=== PATIENT | female | born 1985 | race Caucasian/White ===

== ENCOUNTER 2021-04-28 23:06 | Emergency (ER) | payer OTHER, SELFPAY ==
--- NOTE | ~2021-04-28 | US_ITS ---
EXAMINATION: US OB <=14 wk fetus w TV DATE: 04/29/2021 02:19 INDICATION: Right-sided pelvic pain. Evaluate for ectopic . TECHNIQUE: Real-time transabdominal and transvaginal obstetric ultrasound. FINDINGS: No prior studies for comparison. The uterus measures 9.4 x 5.7 x 5.2 cm. A single intrauterine gestational sac measuring 1 cm is ident ified, consistent with 5 week 4 day gestation. Yolk sac is present. No pole or heart motions de tected. There is a subchorionic hemorrhage measuring 2.3 x 1.5 x 1.3 cm. Right ovary contains follicu lar changes. Normal Doppler signal in both ovaries. No free fluid. IMPRESSION: 1. Intrauterine gestational sac corresponding to 5 week 4 day day gestation (PARTH 12/26/2021). No pole or heart motions detected, most likely due to early gestational age. 2: Subchorionic hemorrhage measuring 2.3 x 1.5 x 1.3 cm. Reviewed, dictated and finalized at location A. IMPRESSION: 1. Intrauterine gestational sac corresponding to 5 week 4 day day gestation (ED D 12/26/2021). No pole or heart motions detected, most likely due to early gestational age. 2: Subchorionic hemorrhage measuring 2.3 x 1.5 x 1.3 cm.
[2021-04-28 23:09] VITALS: BP 121/102; PULSE 76; RESP 17; TEMP 36.8; O2SAT 99
[2021-04-28 23:28] LABS: Basophils Percent Auto 0.3 % (0.2-1.2); Eosinophils Absolute Auto 0.2 K/mm3 (0-0.3); Eosinophils Percent Auto 1.3 % (0-4.4); Hematocrit 41.7 % (37.0-47.0); Hemoglobin 13.8 g/dL (12.0-15.0); Immature Granulocyte Absolute 0.06 K/mm3 (0.00-0.031); Immature Granulocyte Percent A 0.5 % (0-0.5); Lymphocytes Absolute Auto 2.98 K/mm3 (0.9-3.2); Mean Corpuscular HGB Conc 33.1 g/dl (32-36); Mean Corpuscular Hemoglobin 29.4 pg (26-34); Mean Corpuscular Volume 88.7 fl (80-100); Mean Platelet Volume 10.6 fl (7.4-10.4); Monocytes Absolute Auto 0.9 K/mm3 (0.1-0.6); Monocytes Percent Auto 7.9 % (2.6-8.5); Neutrophils Absolute Auto 7.3 K/mm3 (1.3-6.7); Platelet Count Result 250 k/mm3 (150-375); White Blood Count 11.5 K/mm3 (4.5-10.0)
--- NOTE | 2021-04-28 23:57 | ED.GENADULT ---
HPI - General Adult General Chief complaint: Nausea/Vomiting/Diarrhea Stated complaint: Kidney pain, nausea Time Seen by Provider: 04/28/21 23:35 History of Present Illness HPI narrative: Patient a 35-year-old female presents the emergency department with chief complaint of right flank pain. Reports that she is early on in and had sudden onset pain in her right flank. Patient states that sharp reports not improved by anything nor is worsened by anything. Patient reports that she has not had an ultrasound this denies vaginal bleeding denies vaginal discharge denies burning with urination. Patient reports a no prior history of kidney stones did have an episode before in the past where she had severe flank pain that resolved spontaneously. Related Data Allergies Allergy/AdvReac Type Severity Reaction Status Date / Time No Known Allergies Allergy Unknown Verified 04/29/21 02:40 Review of Systems Review of Systems: Narrative: A 10 system review of systems was completed on the patient and is negative except for what is stated in the HPI. Nursing and ancillary documentation was reviewed. [facility] Social History Social History Gender identity (if verbalized by the patient): Female Exam Narrative: Exam Narrative: GENERAL: Well-appearing, well-nourished, and in no acute distress. HEAD: Normocephalic, atraumatic. EYES: PERRLA and EOMI. ENT: Nares clear, no rhinorrhea or epistaxis. Mucous membranes moist. NECK: Supple. CHEST: Clear to auscultation. No respiratory distress. HEART: Regular rate and rhythm. No murmur heard. Normal peripheral pulses. ABDOMEN: Soft, nontender, nondistended, normal active bowel sounds. EXTREMITIES: Normal range of motion. No edema. SKIN: Warm, dry, no rash. NEURO: No focal deficits. Alert and oriented x3. PSYCH: Normal mood and affect. Course Course Emergency Course: CT scan shows a single intrauterine gestational sac consistent with 5 weeks and 4 days yolk sac is seen no pole or heart tones were detected on the ultrasound. Vital Signs Vital signs: Vital Signs Temperature 36.8 C 04/28/21 23:09 Pulse Rate 76 04/28/21 23:09 Respiratory Rate 17 04/28/21 23:09 Blood Pressure 121/102 H 04/28/21 23:09 Pulse Oximetry 99 04/28/21 23:09 Temperature 36.8 C 04/28/21 23:09 Pulse Rate 91 04/29/21 02:39 Respiratory Rate 17 04/29/21 02:39 Blood Pressure 106/73 04/29/21 02:39 Pulse Oximetry 100 04/29/21 02:39 Medical Decision Making Vital Signs Vital Signs: Vital Signs Temperature 36.8 C 04/28/21 23:09 Pulse Rate 76 04/28/21 23:09 Respiratory Rate 17 04/28/21 23:09 Blood Pressure 121/102 H 04/28/21 23:09 Pulse Oximetry 99 04/28/21 23:09 Temperature 36.8 C 04/28/21 23:09 Pulse Rate 91 04/29/21 02:39 Respiratory Rate 17 04/29/21 02:39 Blood Pressure 106/73 04/29/21 02:39 Pulse Oximetry 100 04/29/21 02:39 Lab Data Result diagrams: 04/28/21 23:21 04/28/21 23:21 Labs: Lab Results 04/28/21 04/28/21 04/29/21 Range/Units 23:21 23:21 00:10 WBC 11.5 H (4.5-10.0) K/mm3 RBC 4.70 (4.2-5.4) M/mm3 Hgb 13.8 (12.0-15.0) g/dL Hct 41.7 (37.0-47.0) % MCV 88.7 (80-100) fl MCH 29.4 (26-34) pg MCHC 33.1 (32-36) g/dl RDW 12.0 (11.5-14.5) % Plt Count 250 (150-375) k/mm3 MPV 10.6 H (7.4-10.4) fl Immature Gran % (Auto) 0.5 (0-0.5) % Neut % (Auto) 64.0 (45.5-73.1) % Lymph % (Auto) 26.0 (18.3-44.2) % [place] % (Auto) 7.9 (2.6-8.5) % Eos % (Auto) 1.3 (0-4.4) % Baso % (Auto) 0.3 (0.2-1.2) % Lymph # (Auto) 2.98 (0.9-3.2) K/mm3 [place] # (Auto) 0.9 H (0.1-0.6) K/mm3 Eos # (Auto) 0.2 (0-0.3) K/mm3 Baso # (Auto) 0.0 (0.0-0.1) K/mm3 Abs Immat Gran (auto) 0.06 H (0.00-0.031) K/mm3 Absolute Neuts (auto) 7.3 H (1.3-6.7) K/mm3
[2021-04-29 00:01] VITALS: BP 102/65; PULSE 83; RESP 19; O2SAT 100
[2021-04-29] MEDS: SODIUM CHLORIDE 0.9% IV 1,000 ML 999 ML IV CONT (00:13)
[2021-04-29] MEDS: METOCLOPRAMIDE HCL INJ 10 MG/2 ML VIAL IV PUSH (00:14)
[2021-04-29] MEDS: MORPHINE SULFATE (*CRX) 4 MG/ML INJ IV PUSH (00:16)
[2021-04-29 01:10] VITALS: BP 115/80; PULSE 90
[2021-04-29 01:11] VITALS: BP 125/87; PULSE 97
[2021-04-29 01:12] VITALS: BP 123/75; PULSE 87
[2021-04-29 01:47] LABS: Add Urine Microscopic? YES; Appearance Urine Cloudy (Clear); Bacteria Urine Trace /hpf; Bilirubin Urine Negative (Negative); Blood Urine 2+ (Negative); Color Urine Yellow (Yellow); Glucose Urine UA 1+ mg/dL (Negative); Ketones Urine 2+ mg/dL (Negative); Leukocyte Esterase Ur 3+ LEU/UL (Negative); Mucus Urine Rare /lpf; Nitrate Urine Negative (Negative); Protein Urine 2+ mg/dL (Negative); RBC Urine >75 /hpf (0-2); Specific Grav Ur 1.027 (1.001-1.035); Squamous Epithelial Cell Urine Many /hpf (Few); Urobilinogen Urine Negative mg/dL (<2.0); WBC Urine 31-50 /hpf
--- NOTE | 2021-04-29 01:52 | PC.NURSE ---
Main lab contacted at this time to follow up on lab work for pt (lipase and CMP). Gayle in lab stated she will work on getting results now.
--- NOTE | 2021-04-29 01:55 | PC.NURSE ---
Pt to US via stretcher at this time.
[2021-04-29 02:01] LABS: Alanine Aminotransferase 16 U/L (4-35); Albumin Level 4.7 g/dL (3.5-5.1); Alkaline Phosphatase 94 U/L (38-126); Anion Gap 14 mmol/L (8-16); Aspartate Amino Transferase 23 U/L (14-36); Bilirubin,Total 0.3 mg/dL (0.2-1.3); Blood Urea Nitrogen 13 mg/dL (7-17); Calcium 9.9 mg/dL (8.4-10.2); Carbon Dioxide 18 mmol/L (22-30); Chloride 107 mmol/L (98-107); Estimated CRCL calculation 109 ml/min; Estimated Glomerular Filt Rate > 60; Glucose 127 mg/dL (65-105); Lipase 93 U/L (23-300); Potassium 3.5 mmol/L (3.4-5.0); Sodium 139 mmol/L (137-145)
[2021-04-29 02:39] VITALS: BP 106/73; PULSE 91; RESP 17; O2SAT 100
[2021-04-29 03:35] VITALS: BP 103/86; PULSE 101; RESP 19; O2SAT 98
== END 2021-04-29 03:36 | disposition home or self-care (01) ==
PROVIDERS: Emergency Provider Emergency Medicine
DX: O26.891 Other specified pregnancy related conditions, first trimester (principal); R10.9 Unspecified abdominal pain; O23.41 Unspecified infection of urinary tract in pregnancy, first trimester; Z3A.01 Less than 8 weeks gestation of pregnancy
CPT/HCPCS: 36415; 76801; 76817; 80053; 81001; 81025; 83690; 84702; 85025; 87086; 87088; 96361; 96374; 96375; 99284; J2270; J2765; J7030

== ENCOUNTER 2021-12-14 06:08 | Inpatient (IN) | payer OTHER, SELFPAY ==
[2021-12-14] VITALS (131 sets, daily range): BP systolic 102–145; BP diastolic 47–98; PULSE 67–113; RESP 16; TEMP 36.5–37.2; O2SAT 71–100; BMI 38.5
--- NOTE | ~2021-12-14 | US_ITS ---
EXAMINATION: US OB limited DATE: 12/14/2021 10:59 INDICATION: presentation assessment during third trimester TECHNIQUE: Real-time ultrasound of the pelvis was performed. The interpreting radiologist was not pre sent for the study. COMPARISON: None. FINDINGS: There is a single living fetus in vertex presentation. The placenta is anterior. card iac activity and movement are noted. heart rate is 126 beats per minute (bpm). The amniot ic fluid index is subjectively normal. IMPRESSION: 1. Single living fetus in vertex presentation. Reviewed, dictated and finalized at location B. ETICIAN SPA
[2021-12-14 07:20] LABS: Basophils Percent Auto 0.3 % (0.2-1.2); Eosinophils Absolute Auto 0.1 K/mm3 (0-0.3); Eosinophils Percent Auto 1.2 % (0-4.4); Hematocrit 36.8 % (37.0-47.0); Hemoglobin 12.3 g/dL (12.0-15.0); Immature Granulocyte Absolute 0.07 K/mm3 (0.00-0.031); Lymphocytes Percent Auto 21.9 % (18.3-44.2); Mean Corpuscular HGB Conc 33.4 g/dl (32-36); Mean Corpuscular Hemoglobin 28.6 pg (26-34); Mean Corpuscular Volume 85.6 fl (80-100); Mean Platelet Volume 11.4 fl (7.4-10.4); Monocytes Absolute Auto 0.7 K/mm3 (0.1-0.6); Monocytes Percent Auto 10.8 % (2.6-8.5); Neutrophils Absolute Auto 4.5 K/mm3 (1.3-6.7); Neutrophils Percent Auto 64.8 % (45.5-73.1); Platelet Count Result 176 k/mm3 (150-375); Red Cell Distribution Width 13.2 % (11.5-14.5); White Blood Count 6.9 K/mm3 (4.5-10.0)
[2021-12-14] MEDS: LACTATED RINGERS 1,000 ML 125 ML IV CONT ×2 (07:27→11:58)
[2021-12-14] MEDS: OXYTOCIN 30 UNITS/NS 500 ML 30 UNITS/500 ML BAG IV CONT (07:28)
[2021-12-14 07:33] LABS: Amphetamine Screen Urine Negative (Negative); Barbiturate Screen Urine Negative (Negative); Benzodiazepines Screen Urine Negative (Negative); Cannabinoid Screen Urine Negative (Negative); Cocaine Screen Urine Negative (Negative); Methadone Screen Urine Negative (Negative); Opiate Screen Urine Negative (Negative); Phencyclidine Screen Urine Negative (Negative)
--- NOTE | 2021-12-14 07:38 | WPDOBADMIT ---
Obstetrics - Admit Note Admission Note: 36 y/o @ 39 weeks here for elective induction of labor. record reviewed. No pertinent additions to the history and/or any subsequent changes in the physical findings that are not consistent with the expected course of the were found.Elevated hgb a1c last weekend. All blood sugars normal over the weekend. VSS Contractions irregular FHR category 1 Cervix 3/50/-3 AROM moderate amount of clear odorless fluid Anticipate . Additions to the history and/or subsequent changes in the physical findings follow. None.
--- NOTE | 2021-12-14 11:06 | WPDANESEPP ---
Anes - Eval Pre Procedure Procedure: labor pain management Date/Time: 12/14/21 11:06 Surgeon: anh Preop Diagnosis: pain during labor Pre Op Diagnosis: iol Patient Data Age: 36 Gender: F Height: 1.57 m Weight: 95.5 kg Last Vital Signs Temp 97.7 F 12/14/21 08:16 Pulse 81 12/14/21 11:01 BP 131/87 12/14/21 11:01 Allergies Allergy/AdvReac Type Severity Reaction Status Date / Time No Known Allergies Allergy Unknown Verified 04/29/21 02:40 Home Medications Medication Instructions Recorded Confirmed Type PNV no.[id number] acid 1 tablet PO DAILY 11/28/21 11/28/21 History [Complete ] Laboratory Tests 12/14/21 12/14/21 12/14/21 06:57 06:57 06:57 WBC 6.9 K/mm3 K/mm3 (4.5-10.0) RBC 4.30 M/mm3 M/mm3 (4.2-5.4) Hgb 12.3 g/dL g/dL (12.0-15.0) Hct 36.8 % L % (37.0-47.0) MCV 85.6 fl fl (80-100) MCH 28.6 pg pg (26-34) MCHC 33.4 g/dl g/dl (32-36) RDW 13.2 % % (11.5-14.5) Plt Count 176 k/mm3 k/mm3 (150-375) MPV 11.4 fl H fl (7.4-10.4) Immature Gran % (Auto) 1.0 % H % (0-0.5) Neut % (Auto) 64.8 % % (45.5-73.1) Lymph % (Auto) 21.9 % % (18.3-44.2) [place] % (Auto) 10.8 % H % (2.6-8.5) Eos % (Auto) 1.2 % % (0-4.4) Baso % (Auto) 0.3 % % (0.2-1.2) Lymph # (Auto) 1.50 K/mm3 K/mm3 (0.9-3.2) [place] # (Auto) 0.7 K/mm3 H K/mm3 (0.1-0.6) Eos # (Auto) 0.1 K/mm3 K/mm3 (0-0.3) Baso # (Auto) 0.0 K/mm3 K/mm3 (0.0-0.1) Abs Immat Gran (auto) 0.07 K/mm3 H K/mm3 (0.00-0.031) Absolute Neuts (auto) 4.5 K/mm3 K/mm3 (1.3-6.7) Absolute Nucleated RBC 0.0 K/mm3 K/mm3 (0.0-0.012) Nucleated RBC % 0.0 % % (0.0-0.2) Urine Opiates Screen Urine Methadone Screen Ur Barbiturates Screen Ur Phencyclidine Scrn Ur Amphetamine Screen U Benzodiazepines Scrn Urine Cocaine Screen U Cannabinoids Screen RPR Pending Blood Type O Positive Antibody Screen Negative 12/14/21 06:57 WBC RBC Hgb Hct MCV MCH MCHC RDW Plt Count MPV Immature Gran % (Auto) Neut % (Auto) Lymph % (Auto) [place] % (Auto) Eos % (Auto) Baso % (Auto) Lymph # (Auto) [place] # (Auto) Eos # (Auto) Baso # (Auto) Abs Immat Gran (auto) Absolute Neuts (auto) Absolute Nucleated RBC Nucleated RBC % Urine Opiates Screen Negative (Negative) Urine Methadone Screen Negative (Negative) Ur Barbiturates Screen Negative (Negative) Ur Phencyclidine Scrn Negative (Negative) Ur Amphetamine Screen Negative (Negative) U Benzodiazepines Scrn Negative (Negative) Urine Cocaine Screen Negative (Negative) U Cannabinoids Screen Negative (Negative) RPR Blood Type Antibody Screen Patient hx anesthesia problems: none Family hx anesthesia problems: none Results Review: All pre-operative results and documents have been reviewed as part of the pre-operative evaluation. [facility] Social History Social History Smoking status: Never smoker Second hand tobacco smoke exposure: No Substance use: never Gender identity (if verbalized by the patient): Female Spiritual care concerns: No Exam Day of Procedure 12/14/21 11:06 Patient weight: obese
[2021-12-14] MEDS: SODIUM CHLORIDE 0.9% IV 300 ML 600 ML I-UTERINE (14:11)
[2021-12-14] MEDS: OXYTOCIN 30 UNITS/NS 500 ML 30 UNITS/500 ML BAG 125 UNITS IV CONT (17:00)
--- NOTE | 2021-12-14 17:01 | PM.OBPRVD ---
OB - Delivery Note Procedure Delivery date: 12/14/21 Intrapartal events: None Induction method: per pitocin protocol Delivery monitor: external FHT, external uterine and internal FHT Route of delivery: Episiotomy description: None Laceration Description: Vaginal - 2nd Degree Anesthesia type: Epidural Narrative: Mother and baby in stable condition. Cord gasses collected and handed off to staff. Baby Date of : 12/14/21 Time of : 16:31 Weeks of gestation at delivery: 39 Weight (pounds): 9 Weight (ounces): 0 presentation: vertex position: Left Occiput Anterior Placenta delivery description: Spontaneous cord vessel description: Delayed Cord Clamping
--- NOTE | 2021-12-14 19:30 | OBPPTRN ---
Patient transferred to post room #292 via wheelchair. Support person present. Oriented to unit, room, information board, rooming in, admission packet and security measures. Patient verbalizes understanding.
[2021-12-14] MEDS: miSOPROStol 200 MCG TABLET 800 MCG RECTAL (20:48)
[2021-12-15] VITALS: BP 130/88; PULSE 96; RESP 16; TEMP 37.1; O2SAT 100
[2021-12-15 03:40] VITALS: BP 135/92; PULSE 83; RESP 16; TEMP 37.1; O2SAT 100
[2021-12-15 05:35] LABS: Hematocrit 32.1 % (37.0-47.0); Hemoglobin 10.5 g/dL (12.0-15.0)
[2021-12-15] MEDS: MULTIVIT/MIN/PREN/FOL AC/IRON TABLET 1 TAB PO (07:34)
[2021-12-15 07:55] VITALS: BP 131/89; PULSE 81; RESP 16; TEMP 36.7; O2SAT 100
--- NOTE | 2021-12-15 10:04 | PC.NURSE ---
0730 - Consulted with patient, reviewed infant feeding cues, frequencies, duration of feedings, feeding elimination flow sheet, and signs of adequate intake. Demonstrated stimulation techniques to wake infant for feeding. Assisted with infant to skin to skin. Reviewed positioning/alignment, holding breast and asymmetrical latch on. Mother voiced understanding of effective latch and having had experience with her first child. Nipple care reviewed. Instructed mother to call out for RN assistance if she is unable to latch for feeding or she has discomfort with nursing. Mother demonstrates knowledge of watching for feeding cues (early feeding cues reviewed) for responsive feeding 8-12 times in 24 hours. Mother voiced understanding of information shared.
[2021-12-15 11:47] VITALS: BP 129/79; PULSE 85; RESP 16; TEMP 36.2; O2SAT 100
--- NOTE | 2021-12-15 12:59 | WPDANLDPN2 ---
Anes-Prog Note L&D Date/Time: 12/15/21 12:59 Comfortable throughout: labor and delivery Neuraxial method: epidural Epidural/Spinal procedure site: clean & non-tender Neuro status: Neuro function grossly intact. Cardiovascular status: normal Respiratory status: normal Airway patency: baseline Mental status: baseline Post-Op hydration status: normal Vital Signs: Last Vital Signs Temp 36.2 C L 12/15/21 11:47 Pulse 85 12/15/21 11:47 Resp 16 12/15/21 11:47 BP 129/79 12/15/21 11:47 Pulse Ox 100 12/15/21 11:47 Pain score (VAS): 11/23 I/O: Intake & Output 12/14/21 12/15/21 12/15/21 23:59 07:59 15:59 Intake Total 1999 Balance 1999 Post-procedural complaints: none Patient feedback: Patient satisfied with anesthetic care.
[2021-12-15 16:15] VITALS: BP 131/88; PULSE 80; RESP 18; TEMP 36.3; O2SAT 99
[2021-12-15 16:48] LABS: Rapid Plasma Reagin Non-Reactive (NonReactive)
[2021-12-15 18:50] LABS: Basophils Percent Auto 0.2 % (0.2-1.2); Eosinophils Absolute Auto 0.2 K/mm3 (0-0.3); Hematocrit 29.5 % (37.0-47.0); Hemoglobin 9.9 g/dL (12.0-15.0); Immature Granulocyte Absolute 0.09 K/mm3 (0.00-0.031); Lymphocytes Percent Auto 20.3 % (18.3-44.2); Mean Corpuscular HGB Conc 33.6 g/dl (32-36); Mean Corpuscular Hemoglobin 28.6 pg (26-34); Mean Corpuscular Volume 85.3 fl (80-100); Mean Platelet Volume 11.3 fl (7.4-10.4); Monocytes Absolute Auto 0.7 K/mm3 (0.1-0.6); Monocytes Percent Auto 7.4 % (2.6-8.5); Neutrophils Absolute Auto 6.5 K/mm3 (1.3-6.7); Neutrophils Percent Auto 69.1 % (45.5-73.1); Platelet Count Result 163 k/mm3 (150-375); Red Blood Count 3.46 M/mm3 (4.2-5.4); Red Cell Distribution Width 13.2 % (11.5-14.5); White Blood Count 9.4 K/mm3 (4.5-10.0)
[2021-12-15 19:00] LABS: Alanine Aminotransferase 15 U/L (4-35); Alkaline Phosphatase 142 U/L (38-126); Anion Gap 1 mmol/L (8-16); Aspartate Amino Transferase 28 U/L (14-36); Bilirubin,Total 0.1 mg/dL (0.2-1.3); Blood Urea Nitrogen 8 mg/dL (7-17); Calcium 8.7 mg/dL (8.4-10.2); Carbon Dioxide 23 mmol/L (22-30); Chloride 105 mmol/L (98-107); Estimated CRCL calculation 105 ml/min; Estimated Glomerular Filt Rate > 60; Glucose 160 mg/dL (65-110); Potassium 3.6 mmol/L (3.4-5.0); Sodium 129 mmol/L (137-145); Uric Acid 5.6 mg/dL (2.5-7.5)
[2021-12-15 19:15] VITALS: BP 123/83; PULSE 92; RESP 18; TEMP 36.6; O2SAT 100
[2021-12-18 11:20] VITALS: BP 128/82; PULSE 78; RESP 20; TEMP 36.8; O2SAT 100
--- NOTE | 2021-12-31 08:12 | PM.OBDSVD ---
DS: Admitting Diagnosis Discharge Date 12/15/21 Admitting Diagnosis Labor OB - DS: Summary OB Procedures : None OB Procedures Intrapartum: Spontaneous Vag Delivery OB Procedures: : None Time Spent with Patient Time attestation: Total time spent providing and/or coordinating discharge services: Discharge Plan Discharge Attending physician on discharge: Jose A Morton Consulting providers: Devorah Triana ; Eugene Fraire Discharging Clinician: Devorah Triana Patient Disposition: Home, Self-Care Activity: may shower and other - see discharge instructions Diet: regular Discharge Instructions: return to office in 1 week, return to hospital with any symptoms of high blood pressure as per handout and verbal instructions call office with any questions or problems Education: Mom and Baby Guide Given to: Follow-Up: Call your delivering provider's office for an appointment to be seen in: 1 week Mom and baby should come to the [facility] for the follow-up appointment. Appointment Date/Time: 12/17/21 at 1100 What to expect at your follow-up visit: Call [phone] if you are unable to keep your appointment time. BREAST CARE: * Wear a snug supportive bra. * For engorgement discomfort: Breast Feeding: * Apply warm moist washcloths * Express milk as needed to relieve engorgement * Wear loose clothing Bottle Feeding: * May apply ice packs * For sore nipples: * Identify correct latch-on * Apply warm moist washcloths before and after nursing * Air dry nipples after nursing * May apply Lansinoh cream to nipples EPISIOTOMY/PERINEAL CARE: * Until bleeding stops, use your jacob bottle after urinating * Change your pad frequently throughout the day * You may take sitz baths several times a day (fill your bathtub with warm water and soak for 20 minutes.) Do NOT bathe in the water * No tub baths until seen by your physician - You may shower ACTIVITY: * Rest as much as possible. * Do not exercise or lift anything heavier than your baby (such as laundry or other children.) * Avoid stairs or driving as much as possible. * Do not put anything into the vagina. No douching, tampons, or sexual activity until seen by physician. NOTIFY PHYSICIAN IF YOU HAVE ANY QUESTIONS OR IF ANY OF THE FOLLOWING SYMPTOMS OCCUR: * If your episiotomy or incision becomes red, swollen, or more painful than what you have experienced in the hospital. * If your vaginal bleeding becomes foul smelling. * If your vaginal bleeding becomes more heavy than a period or if your bleeding changes from pink to bright red. However, you may pass an occasional walnut-sized clot once or twice for the first week . * If you experience a sharp, shooting pain in you calves. * If you discover a hard, reddened area on your breast or if you experience flu-like symptoms. DIET: * Eat regular, well-balanced meals. * Drink plenty of fluids daily. If , drink to thirst. Patient Instructions: Antibiotic Form Stand Alone Forms: General Discharge Information Follow-up/Referrals: Jose A Morton MD [Physician] - Discharge Medications: New acetaminophen [Mapap (acetaminophen)] 325 mg Tablet 650 mg PO Q6H PRN (Reason: Mild Pain (1-3) Or Headache) RF: 0 Dermoplast (with menthol) 20-0.5 % Aerosol 1 spray topical PRN PRN (Reason: Perineal Discomfort) RF: 0 ibuprofen 600 mg Tablet 600 mg PO Q6H PRN (Reason: Cramping) RF: 0 KPN Tablet 1 tab PO DAILY RF: 0 Preparation H (Briana Garza) 50 % Pads, Medicated 1 pad topical PRN PRN (Reason: Perineal Discomfort) RF: 0 Continued PNV no.[id number] acid 30-975 mg-mcg Tablet 1 tablet PO DAILY RF: 0 Date of admission: 12/14/21 06:08 Primary Care Provider: PHYSICIAN,DEICER REPAIRER PNEUMATIC Admitting Provider: Jose A Morton Attending physician on admission: Jose A Morton
== END 2021-12-15 20:15 | disposition home or self-care (01) | DRG 807 ==
LOC: ANHLDR 06:21 → ANHOB2 19:43
PROVIDERS: Advanced Practice Midwife; Admitting Provider Obstetrics & Gynecology; Visit Provider Obstetrics & Gynecology
DX: O70.1 Second degree perineal laceration during delivery (principal); Z37.0 Single live birth; Z3A.39 39 weeks gestation of pregnancy
CPT/HCPCS: 36415; 76815; 80053; 80307; 84550; 85014; 85018; 85025; 86592; 86850; 86900; 86901; A9270; J2590; J2795; J7030; J7120

== ENCOUNTER 2025-06-13 15:09 | Emergency (ER) | payer OTHER, SELFPAY ==
[2025-06-13 15:19] VITALS: BP 159/103; PULSE 86; RESP 14; TEMP 36.9; O2SAT 100
[2025-06-13 15:35] LABS: EDSTREPNEGPOS1 Negative (Negative)
--- NOTE | 2025-06-13 15:43 | ED.URI ---
HPI - URI/Sore Throat General Chief Complaint: Upper Respiratory Infection Stated Complaint: Sore Throat Time Seen by Provider: 06/13/25 15:22 Source: patient Mode of arrival: ambulatory Limitations: no limitations History of Present Illness HPI Narrative: Sanjay is a 39-year-old female patient presenting to the clinic today with complaints of sore throat and cough x1 week. She denies any known fevers, chills, body aches. Her children tested positive for COVID and strep in the doctor's office today. She denies any chest pain or shortness of breath. MD elicited complaint: sore throat and nasal congestion Related Data Home Medications ?Medication ?Instructions ?Recorded ?Confirmed ?Last Taken ?Type vit#24-iron amino acid 1 tablet PO DAILY 11/28/21 11/28/21 11/28/21 History chelat-folic acid 30 mg-975 mcg tablet Allergies Allergy/AdvReac Type Severity Reaction Status Date / Time No Known Allergies Allergy Unknown Verified 06/13/25 15:14 Review of Systems Review of Systems: Pertinent positives per HPI. Patient denies any fever, chills, rash, headache, visual changes, dizziness, cough, shortness of breath, chest pain, palpitations, nausea, vomiting, diarrhea, constipation, abdominal pain, or any urinary issues. PMFSH Social History Social History Smoking status: Never smoker Second hand tobacco smoke exposure: No Substance use: never Gender identity (if verbalized by the patient): Female Spiritual care concerns: No Comments At the time of my signature, I reviewed and agree with the nursing past medical, surgical, social, and family history. There is no relevant family history pertinent to the patient complaint. Exam Narrative: General: Well-developed, well nourished, in no apparent distress Head: Normocephalic, atraumatic Eyes: Pupils equally round and reactive to light bilaterally, EOM intact, sclera and conjunctive clear, no discharge, lids normal Ears: TMs intact and clear, ear canals clear, no drainage, grossly hearing normal. Nose: Nares patent, clear discharge, no inflammation, no sinus tenderness. Mouth: Oral pharynx red with mild tonsillar enlargement without lesions or masses, good dentition, MMM. Neck: Supple, trachea midline, no enlargement of anterior or posterior cervical nodes, no thyroid masses or goiter palpable. Cardio: Regular rate and rhythm, s1 and s2 normal, no murmur appreciated. Resp: Faint wheezing in the posterior left lower lobe otherwise clear, no rhonchi, rales, or rubs Course Course Emergency Course: Portions of this record may have been created with voice recognition software. Level of Care: Express Care Visit Vital Signs Vital signs: Vital Signs Temperature 36.9 C 06/13/25 15:19 Pulse Rate 86 06/13/25 15:19 Respiratory Rate 14 06/13/25 15:19 Blood Pressure 159/103 H 06/13/25 15:19 Pulse Oximetry 100 06/13/25 15:19 Oxygen Delivery Room Air 06/13/25 15:19 Temperature 36.9 C 06/13/25 15:19 Pulse Rate 86 06/13/25 15:19 Respiratory Rate 14 06/13/25 15:19 Blood Pressure 159/103 H 06/13/25 15:19 Pulse Oximetry 100 06/13/25 15:19 Oxygen Delivery Room Air 06/13/25 15:19 Vital signs reviewed MDM - URI/Sore Throat MDM Narrative Medical decision making narrative: At the time of visit patient is resting comfortably on the exam table. Patient appears to be nontoxic. Complaints of sore throat and cough x1 week. She denies any known fevers, chills, body aches. Her children tested positive for COVID and strep in the doctor's office today. She denies any chest pain or shortness of breath. Has faint wheezing over the left posterior lower lobe. Strep test was ordered. No sinus tenderness Labs: Strep test was negative in the clinic today. We will send strep for culture. Plan: I suspect patient has pharyngitis/bronchitis. Prescription for prednisone and albuterol inhaler was sent to the pharmacy. We will send strep for culture. Supportive measures were discussed with the patient and they voiced understanding discharge instructions and agrees to treatment plan. Return precautions reviewed Differential Diagnosis Differential diagnosis: Likely upper respiratory infection, otitis media, sinusitis, viral infection, bronchitis, influenza, pharyngitis and other (COVID) Lab Data Labs: Lab Results 06/13/25 Range/Units 15:34 POC Grp A Strep Screen Negative (Negative) Discharge Plan Discharge Clinical Impression: Bronchitis Pharyngitis Qualifiers: Pharyngitis/tonsillitis etiology: unspecified etiology Qualified Code(s): J02.9 - Acute pharyngitis, unspecified Patient Disposition: Home Condition: Stable Instructions: Antibiotic Form, Pharyngitis (ED), Acute Bronchitis (ED) Additional Instructions: Strep test was negative in the clinic today. We will send strep for culture. Faint wheezing over the lower lobe posteriorly Take prescription medications only as prescribed-albuterol inhaler and prednisone Increase fluids and stay well hydrated Tylenol/motrin for pain/fever Flonase and OTC antihistamines as directed Vicks vapor rub to open sinuses Sinus rinses for congestion Cepacol spray, cough drops, throat lozenges, warm tea with honey/lemon, gargle salt water to soothe throat BRAT diet for diarrhea Clear liquids x 24 hours then advance as tolerated for nausea/vomiting Go to the ED if you develop a worsening in your condition- high fever not controlled by Tylenol or Motrin, dehydration, weakness, lethargy, shortness of breath, or chest pain. Follow up with your PCP in 3-5 days if symptoms persist. Patient Language: Citizen Of [place] Prescriptions: New prednisone 20 mg tablet 40 mg PO DAILY 5 Days Qty: 10 0RF albuterol sulfate 90 mcg/actuation HFA aerosol inhaler 2 puff inhalation Q4-6H PRN (Reason: shortness of breath or wheezing) 30 Days Qty: 8.5 0RF No Action PNV no.18-[id number] acid 30-975 mg-mcg Tablet 1 tablet PO DAILY acetaminophen [Mapap (acetaminophen)] 325 mg Tablet 650 mg PO Q6H PRN (Reason: Mild Pain (1-3) Or Headache) 0RF Dermoplast (with menthol) 20-0.5 % Aerosol 1 spray topical PRN PRN (Reason: Perineal Discomfort) 0RF ibuprofen 600 mg Tablet 600 mg PO Q6H PRN (Reason: Cramping) 0RF KPN Tablet 1 tab PO DAILY 0RF Preparation H (Witch Kayla) 50 % Pads, Medicated 1 pad topical PRN PRN (Reason: Perineal Discomfort) 0RF Follow-up/Referrals: PHYSICIAN,LOADING UNIT TOOL SETTER [Primary Care Provider] - Time of Disposition: 15:38 Quality NIHSS Nursing Documentation ED NIHSS nursing documentation: reviewed/agree
== END 2025-06-13 15:41 | disposition home or self-care (01) ==
PROVIDERS: Emergency Provider Nurse Practitioner Family
DX: J40 Bronchitis, not specified as acute or chronic (principal); J02.9 Acute pharyngitis, unspecified
CPT/HCPCS: 87081; 87880; 99203; G0463